=== PATIENT | female | born 1940 | race Caucasian/White ===

== ENCOUNTER 2017-07-18 06:42 | Day surgery (SDC) | payer MEDICAID, OTHER ==
[~2017-07-18] VITALS: Ht 148.6 cm; Wt 67.7 kg
[~2017-07-18 06:42] MED LIST: ACET-66 PO; ASPI81 PO; ATOR40TA28 PO; HYPR15DR23 OU; LEVO50 PO; LOSA50TA37 PO; MIRT15 PO; OS500 PO; VITAD50000 PO
[2017-07-18] MEDS ORDERED: MOXIFLOXACIN HCL 0.5% 3 ML OPHTHALMIC SOLUTION OS ONE (07:00)
[2017-07-18] MEDS ORDERED: RINGERS SOLUTION,LACTATED 500 ML IV ONE ×2 (07:00→07:07)
[2017-07-18] MEDS ORDERED: DICLOFENAC SODIUM 0.1% 2.5 ML OPHTHALMIC SOLUTION OS ONE (07:00)
[2017-07-18] MEDS ORDERED: 0.9% SODIUM CHLORIDE 10 ML SYRINGE IVP PRN (07:00)
[2017-07-18] MEDS ORDERED: DICLOFENAC SODIUM 0.1% 2.5 ML OPHTHALMIC SOLUTION ONE (07:08)
[2017-07-18] MEDS ORDERED: MOXIFLOXACIN HCL 0.5% 3 ML OPHTHALMIC SOLUTION ONE (07:08)
[2017-07-18] MEDS ORDERED: PHENYLEPHRINE HCL 2.5% 2 ML OPHTHALMIC SOLUTION ONE (07:08)
[2017-07-18] MEDS ORDERED: TROPICAMIDE 1% 2 ML OPHTHALMIC SOLUTION ONE (07:08)
[2017-07-18] MEDS: TROPICAMIDE 1% 2 ML OPHTHALMIC SOLUTION OS SCH ×2 (07:46→07:52)
[2017-07-18] MEDS: PHENYLEPHRINE HCL 2.5% 2 ML OPHTHALMIC SOLUTION OS SCH ×2 (07:46→07:52)
[2017-07-18 08:02] LABS: GLUCOSE,POINT OF CARE 120 MG/DL (70-110)
[2017-07-18] MEDS ORDERED: HYALURONATE SODIUM 12 MG/ML 0.8 ML SYRINGE IO ONE (12:00)
[2017-07-18] MEDS ORDERED: POVIDONE-IODINE 10% 15 ML SOLUTION UD TP ONE (12:00)
[2017-07-18] MEDS ORDERED: LIDOCAINE HCL/PF 1% 2 ML VIAL INJ ONE (12:00)
[2017-07-18] MEDS ORDERED: VANCOMYCIN HCL 500 MG/VIAL IV ONE (12:00)
[2017-07-18] MEDS ORDERED: FentaNYL CITRATE-PF 100 MCG/2 ML VIAL IVP ONE (12:00)
[2017-07-18] MEDS ORDERED: TETRACAINE HCL VISCOUS 0.5% 0.6 ML OPHTHALMIC SOLUTION OS ONE (12:00)
[2017-07-18] MEDS ORDERED: MIDAZOLAM HCL 2 MG/2 ML VIAL IVP ONE (12:00)
[2017-07-18] MEDS ORDERED: HYALURONATE SOD/CHONDROITIN SOD 0.5 ML VIAL IO ONE (12:00)
[2017-07-18] MEDS ORDERED: DEXAMETHASONE SOD PHOS 4 MG/ML VIAL IVP ONE (12:00)
== END 2017-07-18 11:10 | disposition home or self-care (01) ==
LOC: SURGERY 06:42
PROVIDERS: ATTEND Specialist
DX: E11.36 Type 2 diabetes mellitus with diabetic cataract (principal); H25.012 Cortical age-related cataract, left eye; E78.00 Pure hypercholesterolemia, unspecified; I44.0 Atrioventricular block, first degree; F32.9 Major depressive disorder, single episode, unspecified; M19.90 Unspecified osteoarthritis, unspecified site; F41.9 Anxiety disorder, unspecified; E66.3 Overweight
CPT/HCPCS: 66984; 82962; 93005; C1780; J1100; J2250; J3010; J3370; J3490 ×2; J7120